=== PATIENT | male | born 1980 | race African-American/Black ===

== ENCOUNTER 2017-07-30 15:55 | Emergency (ER) | payer MEDICAID ==
[~2017-07-30] VITALS: Ht 175.3 cm; Wt 74.8 kg
[~2017-07-30 15:55] MED LIST: BACTRIM DS TAB1 EAC1 ORAL; CEPHALEXIN500 MG ORAL; IBUPROFEN600 MG ORAL; NKM; NORCO 5-325 TA1 EACH ORAL; NORCO1 EA ORAL; TAMIFLU75 MG ORAL
[2017-07-30] MEDS ORDERED: Methocarbamol 750mg tab ORAL ONE (16:30)
[2017-07-30] MEDS ORDERED: IBUPROFEN600 MG ORAL (16:56)
[2017-07-30] MEDS ORDERED: ROBAXIN-750750 MG PO (16:56)
[2017-07-30 17:07] VITALS: BP 120/69
[2017-07-30 17:19] VITALS: BP 120/69
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
== END 2017-07-30 17:20 | disposition home or self-care (01) ==
LOC: EMR 16:09
DX: S39.012A Strain of muscle, fascia and tendon of lower back, initial encounter (principal); V49.9XXA Car occupant (driver) (passenger) injured in unspecified traffic accident, initial encounter; Y92.410 Unspecified street and highway as the place of occurrence of the external cause; J45.909 Unspecified asthma, uncomplicated
CPT/HCPCS: 99283

== ENCOUNTER 2020-08-13 20:46 | Emergency (ER) | payer MEDICAID ==
[~2020-08-13] VITALS: Ht 177.8 cm; Wt 98.9 kg
[~2020-08-13 20:46] MED LIST changes: +ROBAXIN-750750 MG PO
--- NOTE | 2020-08-13 21:00 | NUR ---
ED Nurse Note: lower back pain for 1 week 7/10 sharp pain, lifts boxes for work, worsened with movement, right ACL surgery hx, rash on arms and upper legs for 2 days, unknown cause. Pt is A&OX4, VSS, ERMD at bedside
[2020-08-13] MEDS ORDERED: CYCLOBENZAPRINE10 MG ORAL (21:10)
[2020-08-13] MEDS ORDERED: LIDODERM700 M1 TOPIC (21:10)
[2020-08-13] MEDS ORDERED: HYDROCORTISONE28 G2 TP (21:10)
[2020-08-13] MEDS: Ketorolac 60mg Inj IM ONE ×2 (21:14→21:24)
[2020-08-13] MEDS ORDERED: Acetaminophen 500mg (ES) tab ORAL ONE (21:15)
--- NOTE | 2020-08-13 21:18 | Emergency Room Report ---
History of Present Illness General Chief Complaint: Skin Rash/Abscess Source: Patient Present Illness HPI 39-year-old male here with 1.5 weeks of low back pain. 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 He says that over the past 10 days he has been having worsening right-sided lumbar pain. He has had this before. Has been wearing a back brace and says that he feels somewhat better now. Has been taking ibuprofen for his pain. It is a 3 out of 10 in intensity right now. Also complaining of a rash on his bilateral upper extremities. It is pruritic in nature, has been there for 2 days. Does not take any medications for this. Allergies: Coded Allergies: No Known Allergies (Unverified , 04/17/13) COVID-19 Screening Contact w/high risk pt: No Experienced COVID-19 symptoms?: No COVID-19 Testing performed [employer]ES: No - 2 weeks ago COVID-19 Screening: Negative COVID-19 COVID-19 Testing Source: drive thru covid testing site Nursing Documentation-PMH Hx Cardiac Problems: Yes - Right ACL surgery 2018 Hx Asthma: Yes Review of Systems All Other Systems: negative except mentioned in HPI Physical Exam Vital Signs Date Time Temp Pulse Resp B/P (MAP) Pulse Ox O2 Delivery O2 Flow Rate FiO2 08/13/20 20:53 96.1 89 20 147/91 (109) 98 Room Air Sp02 EP Interpretation: reviewed, normal General Appearance: no apparent distress, alert, non-toxic Head: normocephalic, atraumatic Eyes: bilateral eye normal inspection, bilateral eye PERRL ENT: hearing grossly normal, normal pharynx, no angioedema, normal voice Neck: full range of motion, supple/symm/no masses Respiratory: chest non-tender, lungs clear, normal breath sounds, speaking full sentences Cardiovascular #1: regular rate, rhythm, no edema Cardiovascular #2: 2+ carotid (R), 2+ carotid (L), 2+ radial (R), 2+ radial (L), 2+ dorsalis pedis (R), 2+ dorsalis pedis (L) Gastrointestinal: normal bowel sounds, non tender, soft, non-distended, no guarding, no rebound Rectal: deferred Genitourinary: normal inspection, no CVA tenderness Musculoskeletal: back normal, normal range of motion, gait/station normal, other - Very mild right-sided lumbosacral parasternal tenderness on palpation Neurologic: alert, motor strength/tone normal, oriented x3, sensory intact, responsive, speech normal Psychiatric: judgement/insight normal, memory normal, mood/affect normal, no suicidal/homicidal ideation Skin: other - Flexor surface of bilateral forearms with small areas of maculopapular rash Lymphatic: no adenopathy Medical Decision Making Diagnostic Impression: Primary Impression: Muscle strain Additional Impression: Contact dermatitis ER Course 39-year-old male here with multiple complaints including lower back pain and pruritus of his bilateral flexor surface forearms. This appears to be contact dermatitis on his forearms. Patient did not have any red flag warning signs of his back pain such as trauma, IV drug use, fevers, chills, midline back pain, saddle anesthesia, urinary or fecal retention or incontinence. He was given several pain medications in the emergency department with some resolution of his pain. Was given a prescription for Flexeril and Lidoderm patch. For his rash he was given a prescription for hydrocortisone 1% cream. Told to follow-up with his primary care provider. Discharged in stable condition. Last Vital Signs Date Time Temp Pulse Resp B/P (MAP) Pulse Ox O2 Delivery O2 Flow Rate FiO2 08/13/20 20:53 96.1 89 20 147/91 (109) 98 Room Air Disposition: HOME, SELF-CARE Condition: Stable Scripts Hydrocortisone 1% Oint (Hydrocortisone 1% Oint*) Y Oint 28 GM TP BID for 5 Days, GM Prov: Eligio Malik M.D. 08/13/20 Cyclobenzaprine Hcl* (FLEXERIL*) 10 Mg Tablet 10 MG ORAL THREE TIMES A DAY, #20 TAB Prov: Eligio Malik M.D. 08/13/20 Lidocaine Patch* (Lidoderm Patch*) 1 Each Adh..patch 1 PATCH TOPIC DAILY, #7 PATCH 0 Refills Patch(es) may remain in place for up to 12 hours in any 24-hour period. Prov: Eligio Malik M.D. 08/13/20 Referrals: NOT CHOSEN IPA/,REFERRING (PCP) [facility] Patient Instructions: Rash, Lumbosacral Strain Additional Instructions: Please follow-up with your primary care doctor in the next 1 to 3 days to discuss this emergency department visit and for reevaluation. If you have any new or worsening symptoms please return to the emergency department for reevaluation. Eligio Malik M.D. Aug 13, 2020 21:18
[2020-08-13 21:20] VITALS: BP 147/91
--- NOTE | 2020-08-13 21:20 | NUR ---
ER DISCHARGE NOTE: Patient is cleared to be discharged per ERMD, pt is aox4, on room air, with stable vital signs. pt was given dc and prescription instructions, pt was able to verbalize understanding, pt id band removed. pt is able to ambulate with steady gait. pt took all belongings.
== END 2020-08-13 21:20 | disposition home or self-care (01) ==
LOC: EMR 21:08
DX: T14.8XXA Other injury of unspecified body region, initial encounter (principal); L25.9 Unspecified contact dermatitis, unspecified cause; X50.0XXA Overexertion from strenuous movement or load, initial encounter; Y99.0 Civilian activity done for income or pay; Y92.9 Unspecified place or not applicable
CPT/HCPCS: 99282

== ENCOUNTER 2020-10-18 22:46 | Emergency (ER) | payer MEDICAID ==
[~2020-10-18] VITALS: Ht 177.8 cm; Wt 99.8 kg
[~2020-10-18 22:46] MED LIST changes: +CYCLOBENZAPRINE10 MG ORAL; +HYDROCORTISONE28 G2 TP; +LIDODERM700 M1 TOPIC
--- NOTE | 2020-10-18 22:54 | NUR ---
ED Nurse Note: Patient walked into ED c/o hives located primarily on bilateral arms states that it all happened after snorting crystal meth 2 days ago. patient ao4 with no acute distress. vitals stable. all safety measures met. ermd at bedside for evaluation.
[2020-10-18 22:55] VITALS: BP 116/67
[2020-10-18] MEDS ORDERED: PREDNISONE20 MG ORAL (22:57)
[2020-10-18] MEDS ORDERED: BENADRYL25 M3 PO (22:57)
[2020-10-18] MEDS ORDERED: CLINDAMYCIN HC300 MG ORAL (22:57)
--- NOTE | 2020-10-18 23:01 | Emergency Room Report ---
History of Present Illness General Chief Complaint: Skin Rash/Abscess Source: Patient Present Illness HPI Patient is a 39-year-old male who presents to the ER complaining of rash to bilateral arms and abdomen. He states that has been there for a while but got worse over the past 3 days. He states that it is itchy. He denies any fever or chills. He denies any chest pain or shortness of breath. He states he has a history of similar symptoms in the past was given medications and he got better. He has not tried any medications this time. Allergies: Coded Allergies: No Known Allergies (Unverified , 04/17/13) COVID-19 Screening Contact w/high risk pt: No Experienced COVID-19 symptoms?: No COVID-19 Testing performed MANAGER ENTRY: Yes - july 2020 COVID-19 Screening: Negative COVID-19 COVID-19 Testing Source: [facility] Patient History Reviewed Nursing Documentation: PMH: Agreed; PSxH: Agreed Nursing Documentation-PMH Past Medical History: No Stated History Hx Cardiac Problems: Yes - Right ACL surgery 2017 Hx Asthma: Yes Review of Systems All Other Systems: negative except mentioned in HPI Physical Exam Vital Signs Date Time Temp Pulse Resp B/P (MAP) Pulse Ox O2 Delivery O2 Flow Rate FiO2 10/18/20 22:49 99.0 90 18 116/67 (83) 96 Room Air Sp02 EP Interpretation: reviewed, normal General Appearance: no apparent distress, alert, GCS 15, non-toxic Head: normocephalic, atraumatic Eyes: bilateral eye normal inspection, bilateral eye PERRL ENT: hearing grossly normal, normal pharynx, no angioedema, normal voice Neck: full range of motion, supple/symm/no masses Respiratory: chest non-tender, lungs clear, normal breath sounds, speaking full sentences Cardiovascular #1: regular rate, rhythm, no edema Gastrointestinal: normal bowel sounds, non tender, soft, non-distended, no guarding, no rebound Rectal: deferred Musculoskeletal: normal range of motion Neurologic: industrial engineering manager III-XII nml as tested, oriented x3 Psychiatric: no suicidal/homicidal ideation Skin: other - Dermatitis to bilateral upper extremities with excoriations and to open superficial ulcerations on the right bicep Lymphatic: no adenopathy Medical Decision Making Diagnostic Impression: Primary Impression: Rash and other nonspecific skin eruption ER Course After discussing risks and benefits of further diagnostics, treatment plans, as well as indications for and risks of admission, the patient is agreeable to being discharged home. I have explained that their evaluation and treatment in the emergency department today is an important step towards them achieving better health but that their evaluation today is not intended to replace further evaluation and treatment by a physician in their local clinic. I have explained that while the current findings suggest no immediate life threatening emergency they will require further evaluation and treatment by a physician of their choice in their area. They understand that it will be necessary for them to review the final reports of their ED visit with their clinic physician. We have reviewed indications for return to the Emergency Department. I have explained that additional time may need to pass and/or additional testing as an outpatient may be necessary before a definitive diagnosis can be made. They tell me they are willing to follow up as instructed within the timeframe I recommend. They appear to understand what we discussed. Additionally they understand that if they are unable to be seen by an outpatient physician they are welcome, and in fact should, return to the Emergency Department for a repeat evaluation. The patient is stable at time of discharge. Last Vital Signs Date Time Temp Pulse Resp B/P (MAP) Pulse Ox O2 Delivery O2 Flow Rate FiO2 10/18/20 22:55 99.0 90 18 116/67 96 Room Air Disposition: HOME, SELF-CARE Condition: Stable Scripts Prednisone* (PREDNISONE*) 20 Mg Tablet 40 MG ORAL DAILY, #5 TAB Prov: Anita Ferguson M.D. 10/18/20 Diphenhydramine HCl (Benadryl) 25 Mg Capsule 25 MG PO Q8HR, #20 CAP Prov: Anita Ferguson M.D. 10/18/20 Clindamycin Hcl (CLINDAMYCIN HCL) 300 Mg Capsule 300 MG ORAL THREE TIMES A DAY, #21 CAP Prov: Anita Ferguson M.D. 10/18/20 Referrals: [facility] Patient Instructions: Rash Additional Instructions: The patient was provided with discharge instructions, notified to follow-up with a primary care doctor and or specialist in the next 24-48 hours, and to return to the ED if they have worsening of their symptoms. Please note that this report is being documented using [employer] technology. This can lead to erroneous entry secondary to incorrect interpretation by the dictating instrument. Anita Ferguson M.D. Oct 18, 2020 23:01
[2020-10-18 23:05] VITALS: BP 116/67
[2020-10-19] MEDS ORDERED: Clindamycin 150mg cap ORAL SCH
== END 2020-10-18 23:05 | disposition home or self-care (01) ==
LOC: EMR 22:58
DX: R21 Rash and other nonspecific skin eruption (principal); J45.909 Unspecified asthma, uncomplicated
CPT/HCPCS: J7512; Z7502; 99282; S0077

== ENCOUNTER 2020-10-30 06:28 | Emergency (ER) | payer MEDICAID ==
[~2020-10-30] VITALS: Ht 180.3 cm; Wt 99.8 kg
[~2020-10-30 06:28] MED LIST changes: +BENADRYL25 M3 PO; +CLINDAMYCIN HC300 MG ORAL; +PREDNISONE20 MG ORAL
[2020-10-30 06:36] VITALS: BP 145/90
--- NOTE | 2020-10-30 06:42 | NUR ---
ED Nurse Note: pt. aaox4. ambulatory. pt. walked to er from home. per pt. he got prescriptions from our for his rash. It was working but he ran out of meds and rashes came back 300mg clindamycin TID x 7 days 20mg prednisone QD benadryl 25mg q8hrs
[2020-10-30] MEDS ORDERED: PREDNISONE20 MG ORAL (07:04)
[2020-10-30] MEDS ORDERED: DIPHENHYDRAMINE25 M1 ORAL (07:04)
[2020-10-30] MEDS ORDERED: CLINDAMYCIN HC300 MG ORAL (07:04)
[2020-10-30 07:06] VITALS: BP 145/90
--- NOTE | 2020-10-30 07:06 | NUR ---
ED Nurse Note: Pt cleared by health care Provider for discharge. DC instructions/prescription was given and explained to pt and verbalized understanding of teachings. Instructed pt to follow up with PCP within one week. All medical deviecs such as ID band removed. Pt is AAO x4, ambulatory and left with all personal belongings.
--- NOTE | 2020-10-30 08:46 | Emergency Room Report ---
History of Present Illness General Chief Complaint: Medication Refill Source: Patient Present Illness HPI 39-year-old male presents to ED for medication refill. Was seen in here recently for a rash. Was prescribed medications which resolved. States medications have run out and the rash has returned. States is very scratchy primarily both arms. Denies fevers or chills. Denies any known food or drug allergies. No other aggravating relieving factors. Denies any other associated symptoms Allergies: Coded Allergies: No Known Allergies (Unverified , 04/17/13) COVID-19 Screening Contact w/high risk pt: No Experienced COVID-19 symptoms?: No COVID-19 Testing performed GUEST SERVICES COORDINATOR: No Patient History Past Surgical History: other - R ACL Pertinent Family History: none Social History: Denies: smoking, alcohol use, drug use Immunizations: UTD Reviewed Nursing Documentation: PMH: Agreed; PSxH: Agreed Nursing Documentation-PMH Hx Cardiac Problems: Yes - Right ACL surgery 2018 Hx Asthma: Yes Review of Systems All Other Systems: negative except mentioned in HPI Physical Exam Vital Signs Date Time Temp Pulse Resp B/P (MAP) Pulse Ox O2 Delivery O2 Flow Rate FiO2 10/30/20 06:36 98.4 93 18 145/90 (108) 98 Room Air Sp02 EP Interpretation: reviewed, normal General Appearance: no apparent distress, alert, GCS 15, non-toxic Head: normocephalic, atraumatic Eyes: bilateral eye normal inspection, bilateral eye PERRL ENT: hearing grossly normal, normal pharynx, no angioedema, normal voice Neck: full range of motion, supple/symm/no masses Respiratory: chest non-tender, lungs clear, normal breath sounds, speaking full sentences Cardiovascular #1: regular rate, rhythm, no edema Cardiovascular #2: 2+ carotid (R), 2+ carotid (L), 2+ radial (R), 2+ radial (L), 2+ dorsalis pedis (R), 2+ dorsalis pedis (L) Gastrointestinal: normal bowel sounds, non tender, soft, non-distended, no guarding, no rebound Rectal: deferred Genitourinary: normal inspection, no CVA tenderness Musculoskeletal: back normal, normal range of motion, gait/station normal, non- tender Neurologic: alert, motor strength/tone normal, oriented x3, sensory intact, responsive, speech normal Psychiatric: judgement/insight normal, memory normal, mood/affect normal, no suicidal/homicidal ideation Reflexes: 3+ bicep (R), 3+ bicep (L), 3+ tricep (R), 3+ tricep (L), 3+ knee (R), 3+ knee (L) Skin: rash - Edematous rash to bilateral upper extremities. Nonerythematous base Lymphatic: no adenopathy Medical Decision Making Diagnostic Impression: Primary Impression: Rash and other nonspecific skin eruption ER Course Hospital Course 39-year-old male presents to ED with rash to arms Differential diagnoses include: Cellulitis, dermatitis, insect bite, abscess Clinical course Patient placed on stretcher. After initial history, physical exam reveals a male in no acute distress. On exam there is to be an eczematous rash noted to bilateral upper extremities. I discussed findings with patient. He stated that there is a family history of eczema. Explained his high likelihood of being eczema. Patient states that whenever he "sniffs drugs" his symptoms trigger. Caution on drug use. Will refill medications. Recommend dermatology follow-up. Safe for discharge close outpatient follow-up Diagnosis - rash stable and discharged to home with prescription for clindamycin, benedryl, prednisone. Instructed to followup with PMD/dermatology. Instructed return to ED if symptoms recur or worsen Last Vital Signs Date Time Temp Pulse Resp B/P (MAP) Pulse Ox O2 Delivery O2 Flow Rate FiO2 10/30/20 07:06 98.4 93 18 145/90 98 Room Air Status: improved Disposition: HOME, SELF-CARE Condition: Stable Scripts Diphenhydramine Hcl* (DIPHENHYDRAMINE HCL*) 25 Mg Capsule 25 MG ORAL Q6H PRN for Itching for 5 Days, #30 CAP 0 Refills Prov: Yayo García MD 10/30/20 Prednisone* (PREDNISONE*) 20 Mg Tablet 40 MG ORAL DAILY, #10 TAB Prov: Yayo García MD 10/30/20 Clindamycin Hcl (CLINDAMYCIN HCL) 300 Mg Capsule 300 MG ORAL THREE TIMES A DAY, #21 CAP Prov: Yayo García MD 10/30/20 Referrals: NOT CHOSEN IPA/MD,REFERRING (PCP) Patient Instructions: Eczema Yayo García MD Oct 30, 2020 08:46
== END 2020-10-30 07:06 | disposition home or self-care (01) ==
LOC: EMR 06:54
DX: R21 Rash and other nonspecific skin eruption (principal); Z76.0 Encounter for issue of repeat prescription
CPT/HCPCS: 99282

== ENCOUNTER 2020-11-21 17:12 | Emergency (ER) | payer MEDICAID ==
[~2020-11-21] VITALS: Ht 177.8 cm; Wt 99.8 kg
[~2020-11-21 17:12] MED LIST changes: +DIPHENHYDRAMINE25 M1 ORAL
--- NOTE | 2020-11-21 17:36 | Emergency Room Report ---
History of Present Illness General Chief Complaint: Eye Problems Source: Patient Present Illness HPI Patient is a 39-year-old male presents to the ER complaining of trauma to his left eye. Patient states that he was moving an object on a shelf and it landed onto his left eye. He states that his eye was closed and nothing went inside of his eye. He complains of pain and swelling to his left eye. Patient states that he does not wear contacts or corrective lenses. Patient is not on any blood thinners. Patient has not taken any medication prior to arrival. Patient also states there is a history of eczema. He complains of dry scaly rash to both of his arms. He states that he was given oral steroids which started to make it better but that he lost the rest of his pills and is requesting a refill for the prednisone. Allergies: Coded Allergies: No Known Allergies (Unverified , 04/17/13) COVID-19 Screening Contact w/high risk pt: No Experienced COVID-19 symptoms?: No COVID-19 Testing performed REGULATORY ATTORNEY: No Patient History Reviewed Nursing Documentation: PMH: Agreed; PSxH: Agreed Nursing Documentation-PMH Past Medical History: No History, Except For Hx Cardiac Problems: Yes - Right ACL surgery 2018 Hx Asthma: Yes Review of Systems All Other Systems: negative except mentioned in HPI Physical Exam Vital Signs Date Time Temp Pulse Resp B/P (MAP) Pulse Ox O2 Delivery O2 Flow Rate FiO2 11/21/20 17:23 98.4 85 19 137/82 (100) 95 Room Air Sp02 EP Interpretation: reviewed, normal General Appearance: alert, GCS 15, non-toxic, mild distress Eyes: bilateral eye other - Left orbital swelling with tenderness to palpation on the eyelids extraocular motions are intact. No flare and no white cells seen. No photophobia. Patient does have decreased visual acuity from the left eye. No fluorescein uptake on the left cornea pupils are PERRL ENT: normal pharynx Neck: full range of motion, no meningismus Respiratory: chest non-tender, lungs clear Cardiovascular #1: regular rate, rhythm Gastrointestinal: non tender, soft Rectal: deferred Musculoskeletal: normal range of motion Neurologic: sales professional III-XII nml as tested, oriented x3 Psychiatric: no suicidal/homicidal ideation Skin: other - Dry scaly dermatitis to the bilateral forearms Lymphatic: no adenopathy Medical Decision Making Diagnostic Impression: Primary Impression: Traumatic iritis Additional Impression: Dermatitis ER Course Patient given eyedrops in the emergency department patient given cyclopentolate 2% and told to use it 3 times daily as well as prednisolone acetate to be used 4 times daily I allowed him to keep the bottles at home. I told the patient that he needs to be seen by an farmworker machine within 24 hours. I told him that if he does not see one that he could become blind in the left eye. He demonstrated understanding. I refilled the patient's prednisone and ordered topical steroids as well. After discussing risks and benefits of further diagnostics, treatment plans, as well as indications for and risks of admission, the patient is agreeab le to being discharged home. I have explained that their evaluation and treatment in the emergency department today is an important step towards them achieving better health but that their evaluation today is not intended to replace further evaluation and treatment by a physician in their local clinic. I have explained that while the current findings suggest no immediate life thr eatening emergency they will require further evaluation and treatment by a physician of their choice in their area. They understand that it will be necessary for them to review the final reports of their ED visit with their clinic physician. We have reviewed indications for return to the Emergency Department. I have explained that additional time may need to pass and/or additional testing as an outpatient may be necessary before a definitive diagnosis can be made. They tell me they are willing to follow up as instructed within the timeframe I recommend. They appear to understand what we discussed. Additionally they understand that if they are unable to be seen by an outpatient physician they are welcome, and in fact should, return to the Emergency Depa rtment for a repeat evaluation. The patient is stable at time of discharge. CT/MRI/US Diagnostic Results CT/MRI/US Diagnostic Results : Imaging Test Ordered: CT facial bones Impression EXAM: CT Maxillofacial Without Intravenous Contrast CLINICAL HISTORY: Trauma TECHNIQUE: Axial computed tomography images of the face without intravenous contrast. CTDI is 15.3 mGy and DLP is 329.2 mGy-cm. One or more of the following dose reduction techniques were used: automated exposure control, adjustment of the mA and/or kV according to patient size, use of iterative reconstruction technique. COMPARISON: No relevant prior studies available. FINDINGS: Left periorbital contusion. The ocular globe is intact. No retrobulbar hematoma. No acute orbital fracture. Mild rightward deviation of the nasal bridge is felt to reflect a chronic fracture deformity as well. Paranasal sinus mucosal thickening, most pronounced of the inferior left maxillary sinus. No clear effu citlali. IMPRESSION: Left periorbital contusion. No acute fracture. Last Vital Signs Date Time Temp Pulse Resp B/P (MAP) Pulse Ox O2 Delivery O2 Flow Rate FiO2 11/21/20 17:23 98.4 85 19 137/82 (100) 95 Room Air Disposition: HOME, SELF-CARE Condition: Stable Scripts Prednisolone Acetate/Pf (Prednisolone Acet 1% Eye Drop) 5 Ml Drops.susp 5 ML OP QID for 14 Days, B Prov: Anita Ferguson M.D. 11/21/20 Cyclopentolate HCl (Cyclopentolate HCl) 2 Ml Drops 2 ML OP TID for 14 Days, ML Prov: Anita Ferguson M.D. 11/21/20 Hydrocortisone 2% Cream (ANTI-ITCH 2% CREAM) Y Cr 28 GM TP BID for 14 Days, GM Prov: Anita Ferguson M.D. 11/21/20 Prednisone* (PREDNISONE*) 20 Mg Tablet 40 MG ORAL DAILY, #5 TAB Prov: Anita Ferguson M.D. 11/21/20 Referrals: NON PHYSICIAN (PCP) Additional Instructions: The patient was provided with discharge instructions, notified to follow-up with a primary care doctor and or specialist in the next 24-48 hours, and to return to the ED if they have worsening of their symptoms. Please note that this report is being documented using [employer] technology. This can lead to erroneous entry secondary to incorrect interpretation by the dictating instrument. Anita Ferguson M.D. Nov 21, 2020 17:36
[2020-11-21] MEDS ORDERED: oxyCODONE HCL/Acetaminophen 5/325mg ORAL ONE (17:45)
[2020-11-21] MEDS ORDERED: Tetracaine 0.5% Opth 4ml Soln LEFT EYE ONE (17:45)
[2020-11-21] MEDS ORDERED: Fluorescein Strips LEFT EYE ONE (17:45)
[2020-11-21 17:50] VITALS: BP 137/82
--- NOTE | 2020-11-21 18:20 | Diagnostic Imaging Report ---
EXAM: CT Maxillofacial Without Intravenous Contrast CLINICAL HISTORY: Trauma TECHNIQUE: Axial computed tomography images of the face without intravenous contrast. CTDI is 15.3 mGy and DLP is 329.2 mGy-cm. One or more of the following dose reduction techniques were used: automated exposure control, adjustment of the mA and/or kV according to patient size, use of iterative reconstruction technique. COMPARISON: No relevant prior studies available. FINDINGS: Left periorbital contusion. The ocular globe is intact. No retrobulbar hematoma. No acute orbital fracture. Mild rightward deviation of the nasal bridge is felt to reflect a chronic fracture deformity as well. Paranasal sinus mucosal thickening, most pronounced of the inferior left maxillary sinus. No clear effusion. IMPRESSION: Left periorbital contusion. No acute fracture.
--- NOTE | 2020-11-21 18:39 | NUR ---
ED Nurse Note:pct rx and requested eye drops
[2020-11-21] MEDS ORDERED: ANTI-ITCH28 G1 TP (18:40)
[2020-11-21] MEDS ORDERED: CYCLOGYL 1% OP S2 ML OP (18:40)
[2020-11-21] MEDS ORDERED: PREDNISONE20 MG ORAL (18:40)
[2020-11-21] MEDS ORDERED: PREDNISOLONE ACE5 M1 OP (18:40)
[2020-11-21] MEDS ORDERED: prednisoLONE acetate 1% Opth Susp 1ml LEFT EYE ONE (18:45)
[2020-11-21] MEDS ORDERED: Cyclopentolate 2% Opth Sol LEFT EYE ONE (18:45)
--- NOTE | 2020-11-21 18:59 | NUR ---
ER DISCHARGE NOTE: Patient is cleared to be discharged per ERMD, pt is aox4, on room air, with stable vital signs. pt was given dc and prescription instructions, pt was able to verbalize understanding. pt is able to ambulate with steady gait. pt took all belongings.
== END 2020-11-21 19:00 | disposition home or self-care (01) ==
LOC: EMR 17:20
DX: H20.9 Unspecified iridocyclitis (principal); L30.9 Dermatitis, unspecified; J45.909 Unspecified asthma, uncomplicated
CPT/HCPCS: 70486; Z7502; 99284